=== PATIENT | male | born 1970 | race Caucasian/White ===

== ENCOUNTER 2017-04-27 07:50 | Day surgery (SDC) | payer BC ==
[2017-04-22 21:11] LABS: HEMATOCRIT 45.8 % (40.0-51.0); HEMOGLOBIN 15.4 g/dL (13.6-17.8)
[2017-04-22 21:17] LABS: PARTIAL THROMBO TIME 30.3 SEC (22.5-37.2)
--- NOTE | ~2017-04-27 | OP ---
Record Of Operation [facility] [address] [place]. [address] NAME: NICOLETTE DIAZ : 74 STATUS : [facility]#: [id number] AGE: 46 ADM/REG DATE : 04/27/17 MR#: [id number] REPORT SERV DATE: 05/02/17 DICTATED BY: JESSIE TRACY DATE: 05/01/17 REPORT STATUS : Draft TRANSCRIBED BY: ANGELA DATE: 05/01/17 DATE OF PROCEDURE: 04/27/2017 PREOPERATIVE DIAGNOSES: 1. Nasal polyposis. 2. Chronic rhinosinusitis. POSTOPERATIVE DIAGNOSES: 1. Nasal polyposis. 2. Chronic rhinosinusitis. PROCEDURES: Image-guided endoscopic bilateral maxillary antrostomy with tissue removal, bilateral total ethmoidectomy, bilateral frontal sinusotomy, left-sided sphenoidotomy, nasal polypectomy. ESTIMATED BLOOD LOSS: 300 mL. COMPLICATIONS: No complications. Propel stents placed in the ethmoid cavity. Balloons used for bilateral frontal sinus. INDICATIONS FOR PROCEDURE: This is a 46-year-old gentleman with a history of chronic rhinosinusitis and nasal polyposis. He was given a course of prolonged antibiotics and a steroid taper with maximum medical therapy for his disease without clearance. He continues to have nasal obstruction and symptoms of sinusitis. An image-guided CT scan shows aguayo sinusitis and nasal polyposis on both sides of the nasal cavity. He has indications for the procedure described. He described the risks and benefits of the procedure including blood loss, infection, risk of anesthesia, pain and bleeding postoperatively, infection postoperatively, recurrence of his polyps, and nasal obstruction. He voiced understanding of things and signed the consent. Consent was placed on the chart at the time of operation. DESCRIPTION OF PROCEDURE: The patient was brought to the OR suite and placed on the table in the supine position. He was intubated, placed under general endotracheal anesthesia using oral LENIN tube without difficulty. He had been sprayed in his nasal cavity with Afrin nasal spray 30 minutes prior to the procedure, and we sprayed again. Just after intubation, I placed 4% cocaine-soaked cottonoids in both sides of the nasal cavity for approximately 5 minutes on each side. The table was turned 90 degrees, and he was prepped and draped for the procedure. Headset was placed to the [employer] image-guidance system and he was registered on the system with close error without difficulty. As I said, this would be done using image guidance and nasal endoscopy using 0, 30, and 70 degree scopes. I would scrub and gown as he was prepped for the procedure. I would begin on the patient's left hand side. I would inject the polyps within the nasal cavity with 2 mL of 1% lidocaine and 1:100,000 epinephrine, and I would perform polypectomy back to the level of the middle turbinate. I did identify the insertion. I would remove the polyps within the nasal cavity, the nasal airway, and the floor up to the mid point of the middle turbinate, medial to the middle turbinate, and from the sphenoid ethmoid recess area as well. I would then Record Of [address] [place]. [address] NAME: NICOLETTE DIAZ : 74 STATUS : [facility] PAT#: [id number] AGE: 46 ADM/REG DATE : 04/27/17 MR#: [id number] REPORT SERV DATE: 05/02/17 DICTATED BY: JESSIE TRACY DATE: 05/01/17 REPORT STATUS : Draft TRANSCRIBED BY: ANGELA DATE: 05/01/17 inject the middle turbinate with another mL of local, and the uncinate with an mL of local as well. I did remove the polyps from the middle meatus back to the ethmoid bulla. I elevated the uncinate and came through the uncinate using a backbiter and a microdebrider. Polyps were evident, coming from the maxillary sinus and these were removed using the debrider. I performed a wide antrostomy in this area, and I did cauterize the posterior fontanelle area. I also injected the posterior fontanelle with another 0.5 mL of local was well. I irrigated out the maxillary sinus in this portion thoroughly and suctioned this out. I then would use the frontal sinus balloon introducer, the wire from the [employer] system to place this into the frontal sinus. The light did shine to the forehead with good reports. I placed a balloon into the recess and inflated this 3 times to 12 atmospheres, creating a nice frontal sinusotomy. I irrigated this out and suctioned this thoroughly. I removed the balloon and the wires and sent these off the table. I then injected the ethmoid bulla using a 0.5 mL of local and came through this using curette. I had the image-guidance system, so I did look at the boundaries of the ethmoid cavity, the bulla, using the straight probe from the image-guidance system, and I did visualize the skin as well to look at the orbital gutters as well as the skull base. So, I came through the anterior ethmoid bulla using curette and then completed my anterior ethmoidectomy using the microdebrider which did show on the image-guidance system to the skull base superiorly, to the lamina papyracea laterally, and the middle turbinate medially back to the basal lamella. I then went through the basal lamella, carefully using a curette, and I did probe this area as well to make sure I was in the area of the posterior air cells. I came into these and performed a posterior ethmoidectomy in like fashion. Once this was completed, I packed this with dry cottonoids. I would then lateralize the middle turbinate and come back to the area of the sphenoid ethmoid recess. There were some polyps in this area which were removed using the straight introducer for the [employer] balloon system. I placed this into the recess and widened this, and then using the probing suction, I probed into the sphenoid sinus itself, suctioning this out. I did inflate the balloon back in this area as well. I irrigated this area. I would place a cottonoid in this area as well, and at this point, we would more or less be complete on the left hand side, so I turned my attention to the right, leaving the cottonoids in place. On the right hand side, I would inject the polyps which were not quite as bad as the left, anteriorly and posteriorly, using both the small needle and spinal needle with 2 mL of local. Then, using a microdebrider, I would perform polypectomy back to the level the middle turbinate. I did identify the middle turbinate which was not obvious at first, back to its insertion. I would remove polyps on the floor back to the nasopharynx and remove these medial to the middle turbinate up to an extent up to the superior turbinate, and then remove these from the sphenoid ethmoid recess as well. At this point, I would medialize the middle turbinate, I would remove the polyps from the middle meatus as well. I injected the middle turbinate and uncinate as I had on the contralateral side. I then elevated the uncinate and entered with the curved probe registered to the image-guidance system, the maxillary sinus. I performed my uncinectomy and removed polyp tissue from the maxillary sinus. I would want to create a wide antrostomy in this area as well using a combination of backbiters, straight David-Cut, and microdebrider. I irrigated out the maxillary sinus and I turned my attention to the ethmoids. I did inject 0.5 mL in the anterior face of the ethmoid bulla, came through this. First, I probed it with a straight probe and then came through this using a curette and with the image-guidance suction debrider. I would perform my anterior ethmoidectomy with typical boundaries being the middle turbinate skull base, lamina papyracea, and basal lamella of the middle Record Of [address] [address] NAME: NICOLETTE DIAZ : 74 STATUS : [facility] PAT#: [id number] AGE: 46 ADM/REG DATE : 04/27/17 MR#: [id number] REPORT SERV DATE: 05/02/17 DICTATED BY: JESSIE TRACY DATE: 05/01/17 REPORT STATUS : Draft TRANSCRIBED BY: ANGELA DATE: 05/01/17 turbinate. I then came through the basal lamella of the middle turbinate into the posterior air cells and carefully opened all the air cells using the image-guidance portion associated with the debrider. I then would pack this using dry cottonoids. I probed the frontal recess using the image-guidance probe, and then attempted to place the balloon into the frontal sinus. With this, I had some difficulty, but I was able to probe and widened this to perform my frontal sinusotomy. I irrigated out this area as well. In attempt to enter the sphenoid ethmoid recess, there were polyps in this area and I did remove the polyps, but I could not identify the sphenoid rostrum and there was further polypoid tissue in front of the sphenoid os. I removed as much of this as possible. It was a much smaller sphenoid sinus, so I decided not to probe within the sinus for fear of further injury. So, I would go about achieving hemostasis at this point. I placed dry cottonoids in the ethmoid cavities and also the sphenoid ethmoid recess. I turned my attention to the left hand side to remove these cottonoids. As I said, I would use the suction Bovie to suction on the posterior fontanelle area, and I did some other small suctioning. I would place a large Propel stent into the ethmoid cavity, and then Surgiflo into the ethmoids until I had hemostasis. I then went to the right hand side, removed the dry cottonoids, and did the same. I placed a large Propel stent into the ethmoid cavity, and then placed Surgiflo within the ethmoids and had good hemostasis here as well. I would remove all cottonoids from the nasopharynx and nasal cavity and suction out the nasopharynx. All bleeding had stopped. Approximately 300 mL of blood loss for the procedure as it was very polypoid, but this was well controlled as he had no difficulty and his blood pressure remained between a systolic of 90 and 100, as we typically do for sinus surgery. His vital signs were otherwise stable. So, at this point, he was returned to the care of the anesthesiologist, subsequently awoken, extubated, and stably transferred to recovery with no complications. The patient tolerated the procedure well. ANDRES/ANGELA Jessie Tracy M.D. / [id number]
[~2017-04-27 07:50] MED LIST: *DENIES; ASA5GR PO; CARDURA XL4 MG PO; CELEBREX2 PO; COREG6 PO; ENDOCET1 TA3 PO; FIORICET-COD 51 EACH PO; FLOMAX4 PO; FLONASE NAS; GLUCOPHAGE1000 MG PO; KLONO2 PO; LANTUSCART SC; LOM PO; MATZIM PO; NEUR600 PO; NEXIUM40 PO; PLAVIX PO; PRENAVITE PO; PROZAC PO; SINGULAIR1 PO; TRILIPIX135 MG PO; VIAGRA100 MG PO; [UNRECOGNIZED DRUG - OTHER] PO
== END 2017-04-27 15:11 | disposition home or self-care (01) ==
LOC: SDC 07:50
PROVIDERS: Otolaryngology
PROC: 09TU4ZZ Resection of Right Ethmoid Sinus, Percutaneous Endoscopic Approach (ICD-10-PCS; 2017-04-27)
PROC: 09BT4ZZ Excision of Left Frontal Sinus, Percutaneous Endoscopic Approach (ICD-10-PCS; 2017-04-27)
PROC: 09BS4ZZ Excision of Right Frontal Sinus, Percutaneous Endoscopic Approach (ICD-10-PCS; 2017-04-27)
PROC: 099X4ZZ Drainage of Left Sphenoid Sinus, Percutaneous Endoscopic Approach (ICD-10-PCS; 2017-04-27)
PROC: 09BK4ZZ Excision of Nasal Mucosa and Soft Tissue, Percutaneous Endoscopic Approach (ICD-10-PCS; 2017-04-27)
PROC: 099R4ZZ Drainage of Left Maxillary Sinus, Percutaneous Endoscopic Approach (ICD-10-PCS; principal; 2017-04-27 09:30)
PROC: 099Q4ZZ Drainage of Right Maxillary Sinus, Percutaneous Endoscopic Approach (ICD-10-PCS; 2017-04-27 09:30)
PROC: 09TV4ZZ Resection of Left Ethmoid Sinus, Percutaneous Endoscopic Approach (ICD-10-PCS; 2017-04-27 09:30)
DX: J32.0 Chronic maxillary sinusitis (principal); J33.9 Nasal polyp, unspecified; I10 Essential (primary) hypertension; F17.210 Nicotine dependence, cigarettes, uncomplicated; Z90.49 Acquired absence of other specified parts of digestive tract; Z98.890 Other specified postprocedural states
CPT/HCPCS: 36415; 85014; 85018; 85730; 88305; A9270-GY; C1725; C1726; C2625; J0360; J0690; J1170; J2250; J2405; J2710; J3010